=== PATIENT | male | born 1975 | race Caucasian/White ===

== ENCOUNTER 2018-01-28 05:59 | Inpatient (IN) | payer MEDICAID ==
[~2018-01-28] VITALS: Ht 170.2 cm; Wt 108.9 kg
[2018-01-28 06:12] VITALS: Ht 170.2 cm; Wt 108.9 kg
[2018-01-28 06:34] LABS: BASOPHIL % 0.3 % (0-2); PLATELET COUNT 303 x10^3mcL (130-400); RED CELL DISTRIBUTION WIDTH 13.9 % (11.5-14.5)
[2018-01-28 06:59] LABS: CALCIUM 8.8 mg/dL (8.5-10.1); CARBON DIOXIDE 28.4 mmol/L (21-32); CHLORIDE SERUM 109 mmol/L (98-107); CREATININE SERUM 1.1 mg/dL (0.7-1.3); GFR1 > 60 mL/min; GLUCOSE SERUM 131 mg/dL (74-106); POTASSIUM SERUM 3.9 mmol/L (3.5-5.1); SODIUM SERUM 147 mmol/L (136-145)
[2018-01-28 08:09] LABS: microscopic required? YES; urine erythrocyte 1+ (NEGATIVE)
[2018-01-28 08:27] LABS: CHOLESTEROL/HDL RATIO 3.1; MAGNESIUM 2.1 mg/dL (1.8-2.4); PHOSPHOROUS 2.8 mg/dL (2.5-4.9)
[2018-01-28 08:36] LABS: T3 TOTAL 1.46 ng/mL
[2018-01-28 09:57] LABS: AMPHETAMINE QUAL UR NONE DETECTED (NEG <=1000)
[2018-01-28 10:24] LABS: FREE T4 0.86 ng/dL (0.76-1.46); FREE THYROXINE INDEX 2.9 ug/dL (1.4-4.5); T4(THYROXINE) 8.5 ug/dL (4.7-13.3)
[2018-01-28 10:33] VITALS: BP 151/104
[2018-01-28 12:23] VITALS: BP 140/85
[2018-01-28 17:35] VITALS: BP 171/118
[2018-01-28 18:00] VITALS: BP 163/112
[2018-01-28 19:21] VITALS: BP 115/77
[2018-01-28 20:26] VITALS: BP 126/87
[2018-01-29 05:32] VITALS: BP 142/99
[2018-01-29 06:40] LABS: BASOPHIL % 0.3 % (0-2); PLATELET COUNT 285 x10^3mcL (130-400); RED CELL DISTRIBUTION WIDTH 13.9 % (11.5-14.5)
[2018-01-29 06:51] LABS: CALCIUM 8.1 mg/dL (8.5-10.1); CARBON DIOXIDE 27.9 mmol/L (21-32); CHLORIDE SERUM 111 mmol/L (98-107); GFR1 > 60 mL/min; GLUCOSE SERUM 103 mg/dL (74-106); MAGNESIUM 2.2 mg/dL (1.8-2.4); PHOSPHOROUS 3.5 mg/dL (2.5-4.9); POTASSIUM SERUM 3.7 mmol/L (3.5-5.1); SODIUM SERUM 146 mmol/L (136-145)
[2018-01-29 09:25] VITALS: BP 141/102
[2018-01-29 13:22] VITALS: BP 140/94
[2018-01-29 17:24] VITALS: BP 150/102
[2018-01-29 20:16] VITALS: BP 144/94
[2018-01-30 05:30] VITALS: BP 148/96
[2018-01-30 06:37] LABS: PLATELET COUNT 298 x10^3mcL (130-400); RED CELL DISTRIBUTION WIDTH 13.6 % (11.5-14.5)
[2018-01-30 06:52] LABS: CALCIUM 8.3 mg/dL (8.5-10.1); CARBON DIOXIDE 26.9 mmol/L (21-32); CHLORIDE SERUM 113 mmol/L (98-107); GFR1 > 60 mL/min; GLUCOSE SERUM 112 mg/dL (74-106); POTASSIUM SERUM 4.1 mmol/L (3.5-5.1); SODIUM SERUM 142 mmol/L (136-145)
[2018-01-30 07:04] LABS: BASOPHIL % 0 % (0-2)
[2018-01-30 09:48] VITALS: BP 137/90
[2018-01-30] MEDS ORDERED: FLO4 PO (11:57)
[2018-01-30] MEDS ORDERED: APAP/HYDROCODON1 T13 PO (11:58)
[2018-01-30] MEDS ORDERED: LEVAQUIN750 MG PO (11:58)
[2018-01-30] MEDS ORDERED: COR6 PO (11:58)
[2018-01-30 13:02] VITALS: BP 137/90
[2018-01-30 13:29] VITALS: BP 152/97
== END 2018-01-30 15:34 | disposition home or self-care (01) | DRG 446 ==
LOC: ED 05:59 → DU 07:44
PROVIDERS: Emergency Medicine; Family Medicine; Urology
PROC: 0T768DZ Dilation of Right Ureter with Intraluminal Device, Via Natural or Artificial Opening Endoscopic (ICD-10-PCS; 2018-01-29)
PROC: 0TC68ZZ Extirpation of Matter from Right Ureter, Via Natural or Artificial Opening Endoscopic (ICD-10-PCS; principal; 2018-01-29 15:00)
DX: N13.2 Hydronephrosis with renal and ureteral calculous obstruction (principal); E87.0 Hyperosmolality and hypernatremia; N39.0 Urinary tract infection, site not specified; I10 Essential (primary) hypertension; I16.0 Hypertensive urgency; R73.03 Prediabetes; Z91.19 Patient's noncompliance with other medical treatment and regimen
CPT/HCPCS: 83880; 84439; C1769; C2625; J0690; J1885; J2405; J3010; J3490; J7030; Q0092; Q9958; Q9967

== ENCOUNTER 2018-02-04 17:32 | Emergency (ER) | payer MEDICAID ==
[~2018-02-04] VITALS: Ht 172.7 cm; Wt 104.8 kg
[~2018-02-04 17:32] MED LIST: APAP/HYDROCODON1 T13 PO; COR6 PO; FLO4 PO; LEVAQUIN750 MG PO
[2018-02-04 17:37] VITALS: Ht 172.7 cm; Wt 104.8 kg
[2018-02-04 18:38] VITALS: BP 153/109
== END 2018-02-04 18:39 | disposition home or self-care (01) ==
LOC: ED 17:32
DX: N20.0 Calculus of kidney (principal)